=== PATIENT | male | born 1990 | race Caucasian/White ===

== ENCOUNTER 2017-11-18 16:35 | Emergency (ER) | payer MEDICAID ==
[~2017-11-18] VITALS: Ht 172.7 cm; Wt 75.0 kg
[2017-11-18] MEDS ORDERED: SODIUM CHLORIDE 0.9% 1,000 ML IV ONE (18:22)
[2017-11-18 18:56] VITALS: BP 141/71
== END 2017-11-18 20:22 | disposition home or self-care (01) ==
LOC: ER 18:18
DX: G92 Toxic encephalopathy (principal); F10.129 Alcohol abuse with intoxication, unspecified
CPT/HCPCS: 36415; 96360; 99284; G0482; J7030; Z7610

== ENCOUNTER 2018-02-10 15:48 | Emergency (ER) | payer MEDICAID ==
[~2018-02-10] VITALS: Ht 172.7 cm; Wt 80.0 kg
[2018-02-11] MEDS ORDERED: IBUPROFEN 600MG TABLET PO ONE (07:45)
[2018-02-11] MEDS ORDERED: ACETAMINOPHEN WITH CODEINE 300/30MG TABLET PO ONE (09:00)
[2018-02-11 09:23] VITALS: BP 144/80
== END 2018-02-11 09:46 | disposition home or self-care (01) ==
LOC: ER 15:48
DX: S92.001A Unspecified fracture of right calcaneus, initial encounter for closed fracture (principal); W13.8XXA Fall from, out of or through other building or structure, initial encounter; Y93.39 Activity, other involving climbing, rappelling and jumping off; Y92.89 Other specified places as the place of occurrence of the external cause; Y99.8 Other external cause status
CPT/HCPCS: 29515; 73610; 73630; 99284; Z7610

== ENCOUNTER 2018-08-13 11:02 | Emergency (ER) | payer MEDICAID ==
[~2018-08-13] VITALS: Ht 175.3 cm; Wt 75.0 kg
[2018-08-13] MEDS ORDERED: IBUPROFEN 600MG TABLET PO ONE (12:30)
[2018-08-13] MEDS ORDERED: ACETAMINOPHEN 325MG TABLET PO ONE (13:15)
[2018-08-13 15:44] VITALS: BP 139/77
== END 2018-08-13 15:45 | disposition home or self-care (01) ==
LOC: ER 11:02
DX: S82.52XA Displaced fracture of medial malleolus of left tibia, initial encounter for closed fracture (principal); S82.832A Other fracture of upper and lower end of left fibula, initial encounter for closed fracture; F10.21 Alcohol dependence, in remission; Z59.0 Homelessness; V03.10XA Pedestrian on foot injured in collision with car, pick-up truck or van in traffic accident, initial encounter; Y93.89 Activity, other specified; Y92.488 Other paved roadways as the place of occurrence of the external cause
CPT/HCPCS: 29515; 73610; 99283; Z7610